=== PATIENT | female | born 1955 | race Hispanic/Latino ===

== ENCOUNTER 2018-04-28 20:15 | Observation (INO) | payer OTHER ==
[~2018-04-28] VITALS: Ht 165.1 cm; Wt 114.8 kg
[~2018-04-28 20:15] MED LIST: ACTOS45 MG PO; AMARYL1 MG PO; CLINDAMYCIN HC300 MG PO; KEFLEX500 MG PO; MOTRIN800 MG PO; SINGULAIR10 MG PO; TUSSIN DM CLEA120 ML PO; ZESTRIL,PRINIV2.5 MG PO; ZITHROMAX Z-PA250 MG PO
[2018-04-28 21:33] LABS: BASOPHIL (%) 0.3 % (0-1); EOSINOPHIL (%) 3.7 % (0-5); EOSINOPHIL COUNT 0.2 K/uL (0-0.3); HEMATOCRIT 32.4 % (36.0-46.0); HEMOGLOBIN 10.8 G/DL (11.9-15.5); IMMATURE GRANULOCYTE (%) 0.3 % (0.0-0.7); LYMPHOCYTE (%) 29.8 % (15-42); LYMPHOCYTE COUNT 1.8 K/uL (1.0-2.8); MCH 29.5 PG (29.0-34.0); MCHC 33.3 G/DL (30.0-36.0); MCV 88.5 FL (83-99); MONOCYTE (%) 7.7 % (3-12); MONOCYTE COUNT 0.5 K/uL (0-0.8); NEUTROPHIL (%) 58.2 % (45-76); NEUTROPHIL COUNT 3.5 K/uL (1.8-6.4); PLATELET COUNT 213 K/uL (156-360); RBC DIS.WIDTH-CV 14.3 % (11.8-14.6); RBC DIS.WIDTH-SD 45.9 % (39-53); RED BLOOD COUNT 3.66 M/uL (3.80-5.20)
[2018-04-28 21:43] LABS: CHLORIDE 103 mEq/L (99-109); POTASSIUM 4.1 mEq/L (3.7-5.4); SODIUM 139 mEq/L (136-147)
[2018-04-28 21:44] LABS: GLUCOSE 106 mg/dL (70-99)
[2018-04-28 21:48] LABS: CREATININE 1.1 mg/dL (0.6-1.3); GFR ESTIMATE (CALCULATED) 53 mL/min/
[2018-04-28 21:49] LABS: UREA NITROGEN (BUN) 21 mg/dL (9-23)
[2018-04-28 21:58] LABS: TROP-I INTERPRETATION NEGATIVE; TROPONIN-I < 0.01 ng/mL (0.0-0.30)
[2018-04-28] MEDS ORDERED: SINGULAIR10 MG PO (22:39)
[2018-04-28] MEDS ORDERED: ADULT ASPIRIN81 MG PO (22:39)
[2018-04-28] MEDS ORDERED: CYMBALTA60 MG PO (22:39)
[2018-04-28] MEDS ORDERED: TYLENOL EXTRA500 MG PO (22:39)
[2018-04-28] MEDS ORDERED: CRESTOR20 MG PO (22:40)
[2018-04-29] VITALS (8 sets, daily range): BP systolic 132–163; BP diastolic 66–88
[2018-04-29 04:55] LABS: HEMATOCRIT 31.2 % (36.0-46.0); HEMOGLOBIN 10.3 G/DL (11.9-15.5); MCH 28.9 PG (29.0-34.0); MCV 87.6 FL (83-99); PLATELET COUNT 209 K/uL (156-360); RBC DIS.WIDTH-CV 14.1 % (11.8-14.6); RBC DIS.WIDTH-SD 45.2 % (39-53); RED BLOOD COUNT 3.56 M/uL (3.80-5.20)
[2018-04-29 05:06] LABS: ALBUMIN 3.6 g/dL (3.2-4.8); CHLORIDE 104 mEq/L (99-109); POTASSIUM 4.2 mEq/L (3.7-5.4); SODIUM 140 mEq/L (136-147)
[2018-04-29 05:08] LABS: GLUCOSE 122 mg/dL (70-99); TOTAL PROTEIN 6.2 g/dL (6.4-8.3)
[2018-04-29 05:10] LABS: TOTAL BILIRUBIN 0.3 mg/dL (0.0-1.0)
[2018-04-29 05:12] LABS: ALKALINE PHOSPHATASE 89 IU/L (3-129); CREATININE 0.9 mg/dL (0.6-1.3); GFR ESTIMATE (CALCULATED) > 59 mL/min/
[2018-04-29 05:13] LABS: UREA NITROGEN (BUN) 17 mg/dL (9-23)
[2018-04-29 05:14] LABS: AST (GOT) 15 IU/L (2-34)
[2018-04-29 05:15] LABS: ALT (GPT) 17 IU/L (3-49)
[2018-04-29 05:21] LABS: TROP-I INTERPRETATION NEGATIVE; TROPONIN-I < 0.01 ng/mL (0.0-0.30)
[2018-04-29 10:28] LABS: HEMOGLOBIN A1c (GLYCOHEMOGLOB) 6.7 % (Below 5.7)
[2018-04-29 10:39] LABS: TROP-I INTERPRETATION NEGATIVE; TROPONIN-I 0.01 ng/mL (0.0-0.30)
[2018-04-29] MEDS ORDERED: ZOFRAN4 MG PO (14:38)
[2018-04-29] MEDS ORDERED: ULTRAM50 MG PO (14:55)
[2018-04-29] MEDS ORDERED: LISINOPRIL5 MG PO (15:10)
[2018-04-30 03:51] VITALS: BP 152/86
[2018-04-30 07:15] VITALS: BP 146/79
== END 2018-04-30 11:15 | disposition home or self-care (01) ==
LOC: EME 20:15 → EDOF 04-29 00:33 → 4SOUTH 04-29 00:33 → ENRESERV 04-29 00:37 → 4SOUTH 04-29 01:30
PROVIDERS: Emergency Medicine; Internal Medicine
DX: R07.9 Chest pain, unspecified (principal); R51 Headache; R20.2 Paresthesia of skin; M54.2 Cervicalgia; M48.02 Spinal stenosis, cervical region; E11.65 Type 2 diabetes mellitus with hyperglycemia; I10 Essential (primary) hypertension; E78.5 Hyperlipidemia, unspecified; Z79.82 Long term (current) use of aspirin; M06.9 Rheumatoid arthritis, unspecified
CPT/HCPCS: 70450; 71045; 71046; 72125; 80048; 80053; 82948; 83036; 84484; 85025; 85027; 93005; 99281; 99285; G0378; J1815; J2270; J2405